=== PATIENT | female | born 1995 | race Caucasian/White ===

== ENCOUNTER 2023-05-23 06:35 | Emergency (ER) | payer MEDICAID, OTHER ==
[~2023-05-23] VITALS: Ht 177.8 cm; Wt 158.8 kg
[2023-05-23 06:40] VITALS: BP 106/78; PULSE 80; RESP 18; TEMP 98; O2SAT 100
== END 2023-05-23 07:43 | disposition left against medical advice (07) ==
LOC: MED 06:35
DX: R06.02 Shortness of breath (principal); R05.9 Cough, unspecified; R60.0 Localized edema; F15.10 Other stimulant abuse, uncomplicated
CPT/HCPCS: 71045; 93005; 99283; Q0092

== ENCOUNTER 2023-11-12 22:22 | Emergency (ER) | payer OTHER ==
[~2023-11-12] VITALS: Ht 177.8 cm; Wt 113.4 kg
[2023-11-12 23:01] VITALS: BP 109/74; PULSE 97; RESP 18; TEMP 98.1; O2SAT 95
== END 2023-11-12 23:07 | disposition left against medical advice (07) ==
LOC: MED 22:22
DX: M79.604 Pain in right leg (principal); Z53.1 Procedure and treatment not carried out because of patient's decision for reasons of belief and group pressure